=== PATIENT | female | born 1950 | race Two or more races ===

== ENCOUNTER 2017-11-04 19:18 | Emergency (ER) | payer MEDICARE, OTHER, MEDICAID ==
[2017-11-04] MEDS: KETOROLAC 60 MG INJ IM (21:25)
== END 2017-11-05 00:30 | disposition home or self-care (01) ==
LOC: FTE 11-05 00:30
DX: M25.562 Pain in left knee (principal); E11.9 Type 2 diabetes mellitus without complications; I10 Essential (primary) hypertension
CPT/HCPCS: 73562; 93971; 96372; 99285-25